=== PATIENT | male | born 1985 | race African-American/Black ===

== ENCOUNTER 2018-09-16 02:07 | Emergency (ER) | payer SELFPAY ==
[~2018-09-16] VITALS: Ht 193 cm; Wt 83.5 kg
[2018-09-16] VITALS (15 sets, daily range): BP systolic 123–171; BP diastolic 67–102
[2018-09-16] MEDS ORDERED: HYDROmorphone 1mg/ml Carpuject IM ONE (02:30)
--- NOTE | 2018-09-16 02:31 | Emergency Room Report ---
History of Present Illness General Chief Complaint: Shoulder Injury Source: Patient Present Illness HPI Is a 33-year-old male who is right-hand dominant. He presents with a right shoulder dislocation. He woke up like this. He has a history of shoulder dislocation since he was 19 years old. It will pop out intermittently. He usually able to pop it back in himself. He try for last 30 minutes at home without success. He called 911. Pain is 10 out of 10. Worse with movement. Better with rest. No other injury. No radiation. Allergies: Coded Allergies: No Known Allergies (Unverified , 09/16/18) Patient History Past Medical History: see triage record, old chart reviewed Past Surgical History: other Pertinent Family History: none Social History: Reports: smoking Immunizations: other Reviewed Nursing Documentation: PMH: Agreed; PSxH: Agreed Nursing Documentation-PMH Past Medical History: No History, Except For Hx Seizures: Yes - owen santamaria Review of Systems Eye: Denies: eye pain, blurred vision ENT: Denies: ear pain, nose congestion, throat swelling Respiratory: Denies: cough, shortness of breath Cardiovascular: Denies: chest pain, palpitations Gastrointestinal: Denies: abdominal pain, diarrhea, nausea, vomiting Musculoskeletal: Reports: joint pain; Denies: back pain Skin: Denies: rash Neurological: Denies: headache, numbness Endocrine: Denies: increased thirst, increased urine Hematologic/Lymphatic: Denies: easy bruising All Other Systems: negative except mentioned in HPI Physical Exam Vital Signs Date Time Temp Pulse Resp B/P (MAP) Pulse Ox O2 Delivery O2 Flow Rate FiO2 09/16/18 02:06 97.9 67 18 130/85 97 Room Air vitals normal Sp02 EP Interpretation: reviewed, normal General Appearance: well appearing, no apparent distress, alert Head: normocephalic, atraumatic Eyes: bilateral eye PERRL, bilateral eye EOMI ENT: hearing grossly normal, normal pharynx Neck: full range of motion, supple, no meningismus Respiratory: chest non-tender, lungs clear, normal breath sounds Cardiovascular #1: regular rate, rhythm, no murmur Gastrointestinal: normal bowel sounds, non tender, no mass, no organomegaly, no bruit, non-distended Musculoskeletal: back normal, gait/station normal, other - Right shoulder with deformity consistent with anterior dislocation. Sensation normal. Elbow nontender. Wrist nontender. Neurologic: alert, oriented x3 Psychiatric: mood/affect normal Skin: warm/dry Procedures Splinting Splinting : Consent: Verbal Location: Rt shoulder Pre-Made Type: shoulder immobilizer Pre-Proc Neuro Vasc Exam: normal Post-Proc Neuro Vasc Exam: normal Patient Tolerated: Well Complications: None Joint Reduction Joint Reduction : Consent: Written Joint Reduction Site: shoulder (R) Procedural Sedation: Yes Reduction Attempts: One Pre-Procedure NV Exam: Yes Post-Procedure NV Exam: Yes Post Joint Reduction Film: joint reduced Patient Tolerated: Well Complications: None Procedural Sedation Consent: Written Time out called at: 03:31 Pre-Sedation Assessment: Elective Airway Assessment (Malampati): I Heart: normal Lungs: normal Abdomen: normal Extremities: normal Procedures/Plans: Closed Reduction Plan for Moderate Sedation: Propofol ASA Score: I Procedure Narrative Consent obtained. IV and monitor done. Respiratory therapist at bedside. Propofol given with total doses of on and 50 mg. I was able to reduce the shoulder without any difficulty. Immobilizer placed. Patient woke up without any problem. No complication. Start Time: 03:32 End Time: 04:02 Communication: No Apparent Limitation Mental Status: Awake Respiration: Unlabored Skin Condition: WNL Abdomen: WNL Nausea: NO Vomiting: NO Medical Decision Making Diagnostic Impression: Primary Impression: Anterior shoulder dislocation Qualified Codes: S43.014A - Anterior dislocation of right humerus, initial encounter ER Course Patient with a shoulder dislocation anteriorly. This is a recurrent issue. He does have a significant Hill-Sachs deformity. No evidence of nerve injury. Reduced with procedural sedation. Other X-Ray Diagnostic Results Other X-Ray Diagnostic Results #1: X-Ray ordered: Right shoulder x-rays # of Views/Limited Vs Complete: 3 View Indication: Pain EP Interpretation: Yes Interpretation: no soft tissue swelling, no fractures, other - Right shoulder anterior dislocation with Hill-Sachs deformity Impression: Other - Anterior shoulder dislocation Electronically Signed by: Jett Hartman MD Other X-Ray Diagnostic Results #2: X-Ray ordered: Rt shoulder xrays # of Views/Limited Vs Complete: 3 View Indication: Pain EP Interpretation: Yes Interpretation: no dislocation, no soft tissue swelling, no fractures Impression: No acute disease Electronically Signed by: Jett Hartman MD Last Vital Signs Date Time Temp Pulse Resp B/P (MAP) Pulse Ox O2 Delivery O2 Flow Rate FiO2 09/16/18 02:06 97.9 67 18 130/85 97 Room Air Status: improved Disposition: HOME, SELF-CARE Condition: Stable Scripts Ibuprofen* (MOTRIN*) 600 Mg Tablet 600 MG ORAL THREE TIMES A DAY, #30 TAB 0 Refills Prov: Jett Hartman MD 09/16/18 Hydrocodone/Acetaminophen 5-325* (HYDROCODONE/ACETAMINOPHEN 5-325*) 1 Each Tablet 1 TAB ORAL Q6H PRN for For Pain, #10 TAB 0 Refills Prov: Jett Hartman MD 09/16/18 Patient Instructions: Shoulder Dislocation Additional Instructions: Follow-up your doctor in 7 days. You will need a referral to see an orthopedic doctor for potential surgery reduce recurrent dislocation. Return if symptom worsen. Jett Hartman MD Sep 16, 2018 02:31
[2018-09-16] MEDS ORDERED: Propofol 200mg/20ml IV ONE ×2 (03:21→04:00)
[2018-09-16] MEDS ORDERED: IBUPROFEN600 MG ORAL (03:24)
[2018-09-16] MEDS ORDERED: HYDROCODON-ACE1 EA15 ORAL (03:24)
[2018-09-16] MEDS ORDERED: Ketorolac 30mg Inj IV ONE (04:00)
--- NOTE | 2018-09-16 11:42 | Diagnostic Imaging Report ---
Indication: Post reduction Findings: 3 views of the right shoulder were obtained. There is a prominent Hill-Sachs deformity involving the superolateral aspect of the humeral head. Glenohumeral joint alignment is currently normal. Some irregularity of the glenoid noted which may be degenerative in nature. IMPRESSION: Normal alignment currently. No acute fracture. Prominent Hill-Sachs deformity of the humeral head. Suggestion of arthrosis of the glenohumeral joint
--- NOTE | 2018-09-16 11:42 | Diagnostic Imaging Report ---
Indication: Right shoulder pain Findings: 3 views of the right shoulder were obtained. Anterior dislocation of the glenohumeral joint demonstrated. Prominent Hill-Sachs deformity noted. IMPRESSION: Anterior dislocation
== END 2018-09-16 05:15 | disposition home or self-care (01) ==
LOC: EDBD 02:07 → EMR 02:25
DX: M24.411 Recurrent dislocation, right shoulder (principal); F17.200 Nicotine dependence, unspecified, uncomplicated; G40.909 Epilepsy, unspecified, not intractable, without status epilepticus
CPT/HCPCS: 23650; 73030; 96372; 96374; 96375; 99284; J1170; J1885; J2704; 29105